=== PATIENT | female | born 1955 | race Caucasian/White ===

== ENCOUNTER 2019-02-18 19:09 | Emergency (ER) | payer MEDICAID ==
[2019-02-18] MEDS ORDERED: Hydrocortisone/Neomycin/Polymyxin B Otic Susp 10 ML Bottle ONE (19:20)
--- NOTE | 2019-02-18 19:40 | EDM.PDOC ---
ED HPI GENERAL MEDICAL PROBLEM - General Chief Complaint: ENT Problem Stated Complaint: PLUGGED EAR Time Seen by Provider: 02/18/19 19:20 Source of Information: Reports: Patient History Limitations: Reports: No Limitations - History of Present Illness INITIAL COMMENTS - FREE TEXT/NARRATIVE: This patient presents to the ED "because there is a Q-tip in my ear." She states that a part of a Q-tip has been in her left ear for the past several days and that has caused her ear to itch. She states there is also a broken fingernail in her left ear from her itching. She is also complaining of a constant cough and runny nose. She is also requesting "a bottle of lorazepam sample" for her anxiety that she gets because she has itching in her ear and a cough. She denies fever. appetite is good, no vomiting or diarrhea. The patient denies other symptoms or concerns. Onset: Today Onset Date: 02/15/19 Duration: Constant Location: Reports: Other (left ear) Severity: Severe (patient states itching is "really bad") Improves with: Reports: None Worsens with: Reports: None Associated Symptoms: Reports: Cough, Other (nasal drainage). Denies: Fever/ Chills, Nausea/Vomiting, Rash, Shortness of Breath - Related Data Allergies Allergy/AdvReac Type Severity Reaction Status Date / Time No Known Allergies Allergy Verified 03/16/18 18:41 Home Meds: Home Meds Citalopram [Citalopram HBr] 40 mg PO DAILY 03/16/18 [History] LORazepam [Ativan] 0.5 mg PO ASDIRECTED 03/16/18 [History] ED ROS ENT - Review of Systems Review Of Systems: See Below Constitutional: Reports: No Symptoms HEENT: Reports: Rhinitis, Other (ear itching). Denies: Ear Discharge, Ear Pain Respiratory: Reports: Cough ("constant") Cardiovascular: Reports: No Symptoms GI/Abdominal: Reports: Constipation. Denies: Abdominal Pain, Anorexia, Diarrhea , Decreased Appetite, Nausea, Vomiting Musculoskeletal: Reports: No Symptoms Skin: Reports: No Symptoms ED EXAM, ENT - Physical Exam Exam: See Below Exam Limited By: Other (patient calm and cooperative) Eye Exam: Bilateral Eye: PERRL Ears: Normal External Exam, Normal Canal, Hearing Grossly Normal, Normal TMs, Other (no foreign bodies visualized in either ear). No: Canal Blood, Canal Discharge, Canal Material, Canal Swelling Nose: Normal Inspection, Normal Mucousa. No: Nasal Discharge, Nasal Swelling Mouth/Throat: Normal Inspection Head: Atraumatic, Normocephalic Neck: Normal Inspection, Full Range of Motion Respiratory/Chest: No Respiratory Distress, Lungs Clear, Normal Breath Sounds, Other (no cough heard) Back: Normal Inspection Neurological: Alert, Oriented Skin: Warm, Dry Departure - Departure Time of Disposition: 19:40 Disposition: Home, Self-Care 01 Condition: Good Clinical Impression: Itching of ear - Discharge Information *PRESCRIPTION DRUG MONITORING PROGRAM REVIEWED*: No *COPY OF PRESCRIPTION DRUG MONITORING REPORT IN PATIENT ELBERT: No Referrals: PCP,None [Primary Care Provider] - Additional Instructions: Patient was given cortisporin otic drops for itching; instructed to instill 3-4 drops 3 times per day as needed.
== END 2019-02-18 19:35 | disposition home or self-care (01) ==
LOC: LB.ED 19:09
DX: H93.8X2 Other specified disorders of left ear (principal)
CPT/HCPCS: 99283; A9270-GY

== ENCOUNTER 2019-03-16 14:27 | Emergency (ER) | payer MEDICAID ==
[2019-03-16] MEDS ORDERED: Sulfamethoxazole/Trimethoprim 800-160 MG Tab ONE (14:45)
[2019-03-16] MEDS ORDERED: LORazepam 2 MG/ML SDV ONE (15:23)
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
== END 2019-03-16 15:35 | disposition home or self-care (01) ==
LOC: LB.ED 14:27
DX: F41.9 Anxiety disorder, unspecified (principal); H65.22 Chronic serous otitis media, left ear; L29.9 Pruritus, unspecified; I10 Essential (primary) hypertension; F32.9 Major depressive disorder, single episode, unspecified; Z77.22 Contact with and (suspected) exposure to environmental tobacco smoke (acute) (chronic); Z79.899 Other long term (current) drug therapy
CPT/HCPCS: 96372; 99283; A9270-GY; J2060

== ENCOUNTER 2019-03-24 11:19 | Emergency (ER) | payer MEDICAID ==
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
== END 2019-03-24 12:25 | disposition home or self-care (01) ==
LOC: LB.ED 11:19
DX: F41.9 Anxiety disorder, unspecified (principal); I10 Essential (primary) hypertension; F32.9 Major depressive disorder, single episode, unspecified; J45.909 Unspecified asthma, uncomplicated; Z79.899 Other long term (current) drug therapy
CPT/HCPCS: 99283